=== PATIENT | male | born 1980 | race African-American/Black ===

== ENCOUNTER 2016-07-04 04:12 | Emergency (ER) | payer SELFPAY ==
[2016-07-04] MEDS ORDERED: HYDROCODONE/ACETAMINOPHEN 5-325 MG 6 TAB/DSPK PO PRN (05:04)
[2016-07-04] MEDS ORDERED: OXYCODONE-ACETAMINOPHEN 5-325 MG TABLET PO ONE (05:04)
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
[2016-07-04 05:42] VITALS: BP 129/78
== END 2016-07-04 05:39 | disposition home or self-care (01) ==
LOC: ER 04:12
PROC: 2W3SX1Z Immobilization of Right Foot using Splint (ICD-10-PCS; principal; 2016-07-04)
DX: S82.831A Other fracture of upper and lower end of right fibula, initial encounter for closed fracture (principal); S80.211A Abrasion, right knee, initial encounter; V28.4XXA Motorcycle driver injured in noncollision transport accident in traffic accident, initial encounter; F17.210 Nicotine dependence, cigarettes, uncomplicated
CPT/HCPCS: 99283

== ENCOUNTER 2016-07-24 02:14 | Emergency (ER) | payer OTHER ==
[2016-07-24 02:26] VITALS: BP 126/68
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
[2016-07-24] MEDS ORDERED: OXYCODONE-ACETAMINOPHEN 5-325 MG TABLET PO ONE (04:02)
== END 2016-07-24 04:00 | disposition home or self-care (01) ==
LOC: ER 02:14
DX: S82.831D Other fracture of upper and lower end of right fibula, subsequent encounter for closed fracture with routine healing (principal); V49.9XXD Car occupant (driver) (passenger) injured in unspecified traffic accident, subsequent encounter; Z59.9 Problem related to housing and economic circumstances, unspecified
CPT/HCPCS: 99283

== ENCOUNTER 2018-12-18 19:34 | Emergency (ER) | payer SELFPAY ==
[2018-12-18] MEDS ORDERED: METHYLPREDNISOLONE INJ 125 MG/2 ML SDV IV ONE (19:58)
[2018-12-18] MEDS ORDERED: FAMOTIDINE INJ/PF 20 MG/2 ML SDV IV ONE (19:58)
[2018-12-18] MEDS ORDERED: DIPHENHYDRAMINE HCL 50 MG/ML VIAL IV ONE (19:58)
--- NOTE | 2018-12-18 20:02 | ER Document Report ---
ED Medical Screen (RME) - General Chief Complaint: Allergic Reaction Stated Complaint: POSSIBLE BEE STING Time Seen by Provider: 12/18/18 19:55 Mode of Arrival: Ambulatory Information source: Patient Notes: Patient is a 38-year-old male presented emergency department after being stung by a bee approximately 30 minutes prior to arrival. Patient reports no history of allergies to this in the past. He reports that he feels like his throat is swelling. He reports he has itching all over and has now developed a rash. Exam: Scattered hives on patient's upper arms, torso front and back. Patient speaking in full complete sentences, swallowing saliva without difficulty. I have greeted and performed a rapid initial assessment of this patient. A comprehensive ED assessment and evaluation of the patient, analysis of test results and completion of the medical decision making process will be conducted by additional ED providers. I have specifically instructed the patient or family members with the patient to immediately return to any nursing staff should anything change in the patient's condition or with their chief complaint. This medical record was dictated with voice recognizing software. There may be grammatical, syntax errors that are unintended. TRAVEL OUTSIDE OF THE [place] IN LAST 30 DAYS: No - Related Data Allergies/Adverse Reactions: No Known Allergies Allergy (Verified 06/03/12 20:10) Past Medical History Renal/ Medical History: Denies: Hx Peritoneal Dialysis Psychiatric Medical History: Reports: Hx Depression Past Surgical History: Reports: Hx Urinary Tract Surgery - urethra stretching when he was 6 years old - Immunizations Hx Diphtheria, Pertussis, Tetanus Vaccination: Yes Physical Exam - Vital signs Vitals: Temp Pulse Resp BP Pulse Ox 98.3 F 100 20 144/78 H 96 12/18/18 19:42 12/18/18 19:42 12/18/18 19:42 12/18/18 19:42 12/18/18 19:42 Course - Vital Signs Vital signs: Temp Pulse Resp BP Pulse Ox 98.3 F 100 20 144/78 H 96 12/18/18 19:42 12/18/18 19:42 12/18/18 19:42 12/18/18 19:42 12/18/18 19:42
[2018-12-18] MEDS ORDERED: EPINEPHRINE INJ/PF 1 MG/1 ML AMPULE ONE (21:03)
[2018-12-18] MEDS ORDERED: EPINEPHRINE INJ/PF 1 MG/1 ML AMPULE IM ONE (21:11)
[2018-12-18] MEDS ORDERED: NORMAL SALINE 1000 ML 1,000 ML IV ONE (21:17)
--- NOTE | 2018-12-18 21:18 | ER Document Report ---
ED Allergic Reaction - General Chief Complaint: Allergic Reaction Stated Complaint: POSSIBLE BEE STING Time Seen by Provider: 12/18/18 19:55 Primary Care Provider: ISABELLE AVELAR FNP [NO LOCAL MD] - Follow up as needed Mode of Arrival: Ambulatory Information source: Patient TRAVEL OUTSIDE OF THE [place] IN LAST 30 DAYS: No - HPI Patient complains to provider of: Patient was stung by a bee prior to arrival in the ED. Onset: Just prior to arrival Onset/Duration: Sudden Quality of pain: Sharp Severity: Mild Pain Level: 1 Identified cause: Yes Medication Exposure: Bee sting Other exposure: Other - Bee sting Skin rash / itching: Facial, "Redness", "Hives" Swelling: Face Associated symptoms: Other - Itching Similar symptoms previously: No Recently seen / treated by doctor: No - Related Data Allergies/Adverse Reactions: No Known Allergies Allergy (Verified 06/03/12 20:10) Past Medical History - General Information source: Patient - Social History Smoking Status: Unknown if Ever Smoked Chew tobacco use (# tins/day): No Frequency of alcohol use: None Drug Abuse: None Family History: Reviewed & Not Pertinent Patient has suicidal ideation: No Patient has homicidal ideation: No Renal/ Medical History: Denies: Hx Peritoneal Dialysis Psychiatric Medical History: Reports: Hx Depression Past Surgical History: Reports: Hx Urinary Tract Surgery - urethra stretching when he was 6 years old - Immunizations Hx Diphtheria, Pertussis, Tetanus Vaccination: Yes Review of Systems - Review of Systems Constitutional: No symptoms reported EENT: No symptoms reported Cardiovascular: No symptoms reported Respiratory: No symptoms reported Gastrointestinal: No symptoms reported Genitourinary: No symptoms reported Male Genitourinary: No symptoms reported Musculoskeletal: No symptoms reported Skin: Rash, Other - Hives on the right forearm. Itching. Hematologic/Lymphatic: No symptoms reported Neurological/Psychological: No symptoms reported -: Yes All other systems reviewed and negative Physical Exam - Vital signs Vitals: Temp Pulse Resp BP Pulse Ox 98.3 F 100 20 144/78 H 96 12/18/18 19:42 12/18/18 19:42 12/18/18 19:42 12/18/18 19:42 12/18/18 19:42 Interpretation: Normal - General General appearance: Appears well, Alert - HEENT Head: Normocephalic, Atraumatic Eyes: Normal Pupils: PERRL - Respiratory Respiratory status: No respiratory distress Chest status: Nontender Breath sounds: Normal Chest palpation: Normal - Cardiovascular Rhythm: Regular Heart sounds: Normal auscultation Murmur: No - Abdominal Inspection: Normal Distension: No distension Bowel sounds: Normal Tenderness: Nontender Organomegaly: No organomegaly - Back Back: Normal, Nontender - Extremities General upper extremity: Normal inspection, Nontender, Normal color, Normal ROM, Normal temperature, Other - -Hives on the right forearm and the site of the bee sting. General lower extremity: Normal inspection, Nontender, Normal color, Normal ROM, Normal temperature, Normal weight bearing. No: Talon's sign - Neurological Neuro grossly intact: Yes Cognition: Normal Orientation: AAOx4 [place] Coma Scale Eye Opening: Spontaneous [place] Coma Scale Verbal: Oriented [place] Coma Scale Motor: Obeys Commands [place] Coma Scale Total: 15 Speech: Normal Motor strength normal: LUE, RUE, LLE, RLE Sensory: Normal - Psychological Associated symptoms: Normal affect, Normal mood - Skin Skin Temperature: Warm Skin Moisture: Dry Skin Color: Normal Course - Re-evaluation Re-evalutation: 12/19/18 04:56 Patient's symptoms have completely resolved after receiving treatment in the ED. Patient said he wants to be discharged home. - Vital Signs Vital signs: Temp Pulse Resp BP Pulse Ox 97.9 F 88 20 138/80 H 99 12/18/18 23:39 12/18/18 23:39 12/18/18 23:39 12/18/18 23:39 12/18/18 23:39 Discharge - Discharge Clinical Impression: Allergic reaction to bee sting Condition: Stable Disposition: HOME, SELF-CARE Instructions: Acute Allergic Reaction ([facility]) Additional Instructions: Please follow-up with your primary doctor Friday. Return to the emergency room if your condition worsens. Prescriptions: Diphenhydramine HCl [Benadryl 50 mg Capsule] 1 cap PO Q8 PRN #15 capsule PRN Reason: Itching Epinephrine [Epipen Jr 0.15 mg/0.3 mL AutoInject] 1 ea IM ASDIR PRN #1 autoin jector PRN Reason: Famotidine [Pepcid 40 mg Tablet] 40 mg PO DAILY #10 tablet Prednisone [Deltasone 20 mg Tablet] 3 tab PO DAILY 3 Days tablet Referrals: AVELAR,ISABELLE C, [employer] [facility] [NO LOCAL MD] - Follow up as needed
[2018-12-18 23:41] VITALS: BP 138/80
[2018-12-19] MEDS ORDERED: EPINEPHRINE INJ/PF 1 MG/1 ML AMPULE IM ONE (19:59)
== END 2018-12-18 23:42 | disposition home or self-care (01) ==
LOC: ER 19:34
DX: T63.441A Toxic effect of venom of bees, accidental (unintentional), initial encounter (principal); L50.9 Urticaria, unspecified
CPT/HCPCS: 99282; 96372; 96361; 96374; 96375; J1200; J0171; J2930; J7030; S0028